=== PATIENT | female | born 1980 | race Caucasian/White ===

== ENCOUNTER → 2020-10-12 | Outpatient (CLI) | payer OTHER ==
--- NOTE | 2020-10-12 14:19 | RAD ---
XR HAND_RIGHT 2 VIEWS, XR RT WRIST 2 VIEWS DATE: 10/12/2020 1:48 PM INDICATION: RIGHT HAND PAIN, INJURY TODAY COMPARISON: None. FINDINGS: Bones: There is no evidence of acute fracture or dislocation. Joints: The joint spaces are normal. Miscellaneous: None. IMPRESSION: No evidence of acute fracture. Electronically signed by: Julio Ma MD (10/12/2020 2:16 PM) [id number]
== END ==
LOC: PMG 13:30
PROVIDERS: ATTEND Nurse Practitioner Family
DX: M25.531 Pain in right wrist (principal)
CPT/HCPCS: 73100; 73120